=== PATIENT | male | born 1975 | race Caucasian/White ===

== ENCOUNTER 2017-11-25 05:43 | Emergency (ER) | payer BC, OTHER ==
--- NOTE | 2017-11-25 06:08 | ERPHSYRPT ---
- History of Present Illness Time Seen by Provider: 11/25/17 06:02 Source: patient Exam Limitations: no limitations Physician History: 42-year-old white male arrives with complaint of a rapid heart rate associated with diaphoresis which woke patient up one half hours prior to arrival. Patient states he was awakened by a rapid heart rate he noticed he had diaphoresis he denies any chest pain no shortness of breath no nausea no vomiting. 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 Past surgical history is negative. . Timing/Duration: today (1-1/2 hours prior to arrival) Severity: mild Modifying Factors: Improves With: nothing Associated Symptoms: diaphoresis, other (Patient with rapid heart rate which woke the patient 1 1/2 hours ago.), No nausea, No vomiting, No abdominal pain, No shortness of breath, No heartburn, No cough, No chills, No chest pain, No fever, No headaches, No loss of appetite, No malaise, No rash, No syncope, No seizure, No weakness Allergies/Adverse Reactions: No Known Drug Allergies Allergy (Verified 11/25/17 06:12) Home Medications: Aspirin [[place] Aspirin] 81 mg PO DAILY 03/23/15 [History] Carvedilol 3.125 mg [Coreg 3.125 MG] 3.125 mg PO BID 03/23/15 [History] Amlodipine Besylate [Norvasc] 5 mg PO DAILY 11/25/17 [History] Hx Tetanus, Diphtheria Vaccination/Date Given: Yes Hx Influenza Vaccination/Date Given: No Hx Pneumococcal Vaccination/Date Given: No - Review of Systems Constitutional: No Fever, No Chills Eyes: No Symptoms Ears, Nose, & Throat: No Symptoms Respiratory: No Cough, No Dyspnea Cardiac: Palpitations, Other (rapid heart rate woke patient up 1 1/2 hours ago) , No Chest Pain, No Edema, No Syncope, No Orthopnea, No PND Abdominal/Gastrointestinal: No Abdominal Pain, No Nausea, No Vomiting, No Diarrhea Genitourinary Symptoms: No No Symptoms, No Dysuria Musculoskeletal: No Back Pain, No Neck Pain Skin: No Rash Neurological: No Dizziness, No Focal Weakness, No Sensory Changes Psychological: No Symptoms Endocrine: No Symptoms ([place] knee while) All Other Systems: Reviewed and Negative - Past Medical History Pertinent Past Medical History: Yes Cardiac History: Other (patient states 30-40 percent blockage in one coronary artery) Respiratory History: Sleep Apnea Endocrine Medical History: No Pertinent History Musculoskeletal History: No Pertinent History GI Medical History: No Pertinent History History: No Pertinent History Psycho-Social History: No Pertinent History Male Reproductive Disorders: No Pertinent History - Past Surgical History Past Surgical History: No - Social History Smoking Status: Former smoker Exposure to second hand smoke: No Drug Use: none Patient Lives Alone: No - Nursing Vital Signs Nursing Vital Signs: Initial Vital Signs Pulse Rate 112 H 11/25/17 05:56 Respiratory Rate 20 11/25/17 05:56 Blood Pressure 169/111 11/25/17 05:56 O2 Sat by Pulse Oximetry 97 11/25/17 05:56 Pain Scale Pain Intensity 0 - Physical Exam General Appearance: no apparent distress, alert Eye Exam: PERRL/EOMI, eyes nml inspection Ears, Nose, Throat Exam: normal ENT inspection, TMs normal, pharynx normal, moist mucous membranes Neck Exam: normal inspection, non-tender, supple, full range of motion Respiratory Exam: normal breath sounds, lungs clear, No respiratory distress Cardiovascular Exam: regular rate/rhythm, normal peripheral pulses, capillary refill <2 sec, other, No murmur Gastrointestinal/Abdomen Exam: soft Back Exam: normal inspection, normal range of motion, No CVA tenderness, No vertebral tenderness Extremity Exam: normal inspection, normal range of motion, pelvis stable Neurologic Exam: alert, oriented x 3, cooperative, normal mood/affect, nml cerebellar function, nml station & gait, sensation nml, No motor deficits Skin Exam: normal color, warm, dry, No rash Lymphatic Exam: No adenopathy SpO2 Interpretation: normal (97%) Oxygen Delivery: Room Air - Course Nursing assessment & vital signs reviewed: Yes EKG Interpreted by Me: RATE (113 bpm), Other (EKG: Atrial fibrillation, 113 bpm , normal axis, no acute ST or T wave changes noted.) - Radiology Exams Chest X-ray Interpretation: Interpreted by me (no acute disease process noted) Ordered Tests: Active Orders 24 hr Category Date Time Status Fnps STAT Care 11/25/17 05:56 Active EKG-ER Only STAT Care 11/25/17 05:56 Active IV Insertion STAT Care 11/25/17 05:56 Active Pulse Oximetry (ED) STAT Care 11/25/17 05:56 Active CHEST 1 VIEW (PORTABLE) Stat Exams 11/25/17 05:56 Taken CBC W DIFF Stat Lab 11/25/17 06:00 Completed CMP Stat Lab 11/25/17 06:00 Completed PROTIME WITH INR Stat Lab 11/25/17 06:00 Completed PTT Stat Lab 11/25/17 06:00 Completed TROPONIN Q3H Lab 11/25/17 06:00 Completed TROPONIN Q3H Lab 11/25/17 09:00 Ordered TROPONIN Q3H Lab 11/25/17 12:00 Ordered TROPONIN Q3H Lab 11/25/17 15:00 Ordered TROPONIN Q3H Lab 11/25/17 18:00 Ordered Medication Summary Discontinued Medications Generic Name Dose Route Start Last Admin Trade Name Freq PRN Reason Stop Dose Admin Aspirin 324 mg 11/25/17 06:02 11/25/17 06:10 Baby Aspirin 81 Mg Chew PO 11/25/17 06:03 324 mg STAT ONE Administration Aspirin Confirm 11/25/17 06:11 Baby Aspirin 81 Mg Chew Administered 11/25/17 06:12 Dose 324 mg .ROUTE .STK-MED ONE Lab/Rad Data: Laboratory Result Diagrams 11/25/17 06:00 11/25/17 06:00 Laboratory Results 11/25/17 11/25/17 11/25/17 Range/Units 06:00 06:00 06:00 WBC (4.0-10.5) K/mm3 RBC (4.1-5.6) M/mm3 Hgb (12.5-18.0) gm/dl Hct (42-50) % MCV (78-100) fl MCH (26-32) pg MCHC (32-36) g/dl RDW (11.5-14.0) % Plt Count (150-450) K/mm3 MPV (6-9.5) fl Gran % (36.0-66.0) % Eos # (Auto) (0-0.5) Absolute Lymphs (auto) (1.0-4.6) Absolute Monos (auto) (0.0-1.3) Lymphocytes % (24.0-44.0) % Monocytes % (0.0-12.0) % Eosinophils % (0.00-5.0) % Basophils % (0.0-0.4) % Absolute Granulocytes (1.4-6.9) Basophils # (0-0.4) PT 10.4 (8.83-12.87) SECONDS INR 0.90 (0.8-3.0) APTT 28.3 (24.1-36.1) SECONDS Sodium 142 (137-145) mmol/L Potassium 3.6 (3.5-5.1) mmol/L Chloride 106 (98-107) mmol/L Carbon Dioxide 24 (22-30) mmol/L Anion Gap 15.6 H (5-15) MEQ/L BUN 18 (9-20) mg/dL Creatinine 0.71 (0.66-1.25) mg/dL Estimated GFR > 60.0 ML/MIN Glucose 195 H (74-106) mg/dL Calcium 9.2 (8.4-10.2) mg/dL Total Bilirubin 0.60 (0.2-1.3) mg/dL AST 20 (17-59) U/L ALT 29 (0-50) U/L Alkaline Phosphatase 103 (38-126) U/L Troponin I < 0.012 (0.000-0.034) ng/mL Serum Total Protein 7.3 (6.3-8.2) g/dL Albumin 4.3 (3.5-5.0) g/dL 11/25/17 Range/Units 06:00 WBC 7.1 (4.0-10.5) K/mm3 RBC 4.46 (4.1-5.6) M/mm3 Hgb 14.0 (12.5-18.0) gm/dl Hct 40.2 L (42-50) % MCV 90.1 (78-100) fl MCH 31.4 (26-32) pg MCHC 34.8 (32-36) g/dl RDW 14.1 H (11.5-14.0) % Plt Count 283 (150-450) K/mm3 MPV 9.0 (6-9.5) fl Gran % 63.2 (36.0-66.0) % Eos # (Auto) 0.16 (0-0.5) Absolute Lymphs (auto) 2.08 (1.0-4.6) Absolute Monos (auto) 0.33 (0.0-1.3) Lymphocytes % 29.4 (24.0-44.0) % Monocytes % 4.7 (0.0-12.0) % Eosinophils % 2.3 (0.00-5.0) % Basophils % 0.4 (0.0-0.4) % Absolute Granulocytes 4.48 (1.4-6.9) Basophils # 0.03 (0-0.4) PT (8.83-12.87) SECONDS INR (0.8-3.0) APTT (24.1-36.1) SECONDS Sodium (137-145) mmol/L Potassium (3.5-5.1) mmol/L Chloride (98-107) mmol/L Carbon Dioxide (22-30) mmol/L Anion Gap (5-15) MEQ/L BUN (9-20) mg/dL Creatinine (0.66-1.25) mg/dL Estimated GFR ML/MIN Glucose (74-106) mg/dL Calcium (8.4-10.2) mg/dL Total Bilirubin (0.2-1.3) mg/dL AST (17-59) U/L ALT (0-50) U/L Alkaline Phosphatase (38-126) U/L Troponin I (0.000-0.034) ng/mL Serum Total Protein (6.3-8.2) g/dL Albumin (3.5-5.0) g/dL - Progress Progress: improved Progress Note: 11/25/17 06:13 This is a 42-year-old white male he arrives with complaint of a fast heart which woke him up this morning approximately 1-1/2 hours ago he states he has some diaphoresis he did not have any shortness of breath no nausea no vomiting. Patient states he has had a history of one vessel blockage 30-40% in the past he is on amlodipine Coreg and one baby aspirin a day. He arrives he does not appear to be in acute distress he is quite pleasant and cooperative to examination. EKG shows atrial fibrillatio, 113 bpm normal axis no acute ST or T wave changes this is a change as compared to EKG obtained on March 23, 2015 at that time patient had a normal sinus rhythm . Will go ahead and obtain EKG CBC CMP PT PTT chest x-ray of medicine".will give patient aspirin 324 mg orally. 11/25/17 06:57 Patient is a in no acute distress patient's initial heart rate 112, blood pressure initially 169/111 this is coming down to 114/93 heart rate is running between 101 110 patient is on amlodipine 5 mg per day and carvedilol 3.125 mg by mouth twice a day. Patient has not taken either of these medications this morning. Patient was given aspirin 324milligrams orally. I discussed the patient's case with Dr. Zhao, who is financial services consultant for Dr. Garcia, the patient's director operating room, Dr. Zhao, recommended that I Give the patient Lopressor 25 mg orall and give him Lovenox 1 mg/kg subcutaneously . The patient wishes to be transferred to [facility], will arrange for a bed for this patient. - Departure Time of Disposition: 07:06 Departure Disposition: Transfer ([facility] Dr Zhao.) Clinical Impression: New onset atrial fibrillation, Atrial fibrillation with rapid ventricular response Condition: Fair Critical Care Time: No Referrals: YOBANY JOSHI MD [Primary Care Provider] -
[2017-11-25] MEDS: BABY ASPIRIN 81 MG CHEW PO ONE (06:10)
[2017-11-25] MEDS ORDERED: BABY ASPIRIN 81 MG CHEW ONE (06:11)
[2017-11-25 06:22] LABS: BASOPHIL % 0.4 % (0.0-0.4); Basophil (Absolute #) 0.03 (0-0.4); Eosinophil % 2.3 % (0.00-5.0); Eosinophil (Absolute #) 0.16 (0-0.5); Granulocyte Absolute (ANC) 4.48 (1.4-6.9); Granulocytes % 63.2 % (36.0-66.0); Hematocrit 40.2 % (42-50); Lymphocyte (Absolute #) 2.08 (1.0-4.6); Lymphocytes % 29.4 % (24.0-44.0); Mean Cell Volume 90.1 fl (78-100); Mean Corpuscular Hemoglobin 31.4 pg (26-32); Mean Corpuscular Hgb Concent. 34.8 g/dl (32-36); Monocyte (Absolute #) 0.33 (0.0-1.3); Monocytes % 4.7 % (0.0-12.0); Platelet Count 283 K/mm3 (150-450); Red Blood Count 4.46 M/mm3 (4.1-5.6); Red Cell Distribution Width 14.1 % (11.5-14.0); White Blood Count 7.1 K/mm3 (4.0-10.5)
[2017-11-25 06:30] LABS: INR 0.9 (0.8-3.0)
[2017-11-25 06:33] LABS: PTT 28.3 SECONDS (24.1-36.1)
[2017-11-25 06:35] LABS: ALBUMIN 4.3 g/dL (3.5-5.0); ALKALINE PHOSPHATASE 103 U/L (38-126); ANION GAP 15.6 MEQ/L (5-15); BLOOD UREA NITROGEN 18 mg/dL (9-20); CHLORIDE 106 mmol/L (98-107); Calcium 9.2 mg/dL (8.4-10.2); Carbon Dioxide 24 mmol/L (22-30); Creatinine 1 0.71 mg/dL (0.66-1.25); Glucose 195 mg/dL (74-106); Potassium 3.6 mmol/L (3.5-5.1); SGOT/AST 20 U/L (17-59); SGPT/ALT 29 U/L (0-50); SODIUM 142 mmol/L (137-145); Total Protein 7.3 g/dL (6.3-8.2)
[2017-11-25] MEDS ORDERED: Sodium Chloride 0.9% 1000 ML 1,000 ML ONE (07:22)
[2017-11-25] MEDS ORDERED: Lopressor 25MG Tab ONE (07:22)
[2017-11-25] MEDS: Sodium Chloride 0.9% 1000 ML 1,000 ML IV SCH (07:25)
[2017-11-25] MEDS: Lopressor 25MG Tab PO ONE (07:25)
[2017-11-25] MEDS: ENOXAPARIN SODIUM SQ ONE (07:29)
[2017-11-25] MEDS ORDERED: ENOXAPARIN SODIUM SQ ONE (07:31)
[2017-11-25] MEDS: ENOXAPARIN SODIUM SQ STA (07:32)
[2017-11-25 07:41] VITALS: BP 121/93; PULSE 118; O2SAT 96
--- NOTE | 2017-11-25 08:43 | XRAY ---
Indication: Rapid heart rate. Comparison: March 23, 2015. Portable chest again demonstrates normal heart and lungs. Bony thorax intact. No new/acute findings.
== END 2017-11-25 08:19 | disposition short-term general hospital (02) ==
LOC: ED 05:43
DX: I48.91 Unspecified atrial fibrillation (principal); G47.30 Sleep apnea, unspecified; Z87.891 Personal history of nicotine dependence; Z79.899 Other long term (current) drug therapy
CPT/HCPCS: 36000; 36415; 71045; 80053; 84484; 85025; 85610; 85730; 93005; 93041; 96360; 96372; 99285; J1650; A9270-GY

== ENCOUNTER 2018-09-22 18:22 | Emergency (ER) | payer OTHER ==
--- NOTE | 2018-09-22 19:08 | ERPHSYRPT ---
- History of Present Illness Time Seen by Provider: 09/22/18 19:00 Source: patient Exam Limitations: no limitations Patient Subjective Stated Complaint: STATES RIGHT LOWER LEG HAS BEEN SWELLING FOR ONE WEEK. IS NOW BECOMING DISCOLORED ON ANTERIOR LOWER LEG AND RIGHT FOOT. DENIES ANY INJURY. ALSO HAVING PAIN TO LEG, STATES MUSCLE FEELS TIGHT Triage Nursing Assessment: AMBULATED TO ROOM PER SELF. SKIN W/D, COLOR NORMAL. MODERATE SWELLING NOTED TO LOWER RIGHT LEG WITH DISCOLORATION NOTED TO ANTERIOR LOWER LEG AND RIGHT FOOT. GOOD PEDAL PULSE AND RIGHT LEG AND FOOT WARM TO TOUCH. SMALL ABRASION NOTED TO MID RIGHT LOWER LEG. Physician History: 43 y/o white male with h/o afib on xarelto, presents with less than a week h/o right lower leg swelling and bruising. 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 pt denies cp and denies soa. Method of Injury: unknown Occurred: last week Quality: other (improved swelling and bruising) Severity of Pain-Max: none Severity of Pain-Current: none Lower Extremities Pain: leg: right, foot: right, ankle: right Modifying Factors: Improves With: nothing Associated Symptoms: none Allergies/Adverse Reactions: No Known Drug Allergies Allergy (Verified 09/22/18 18:36) Home Medications: Aspirin [[place] Aspirin] 81 mg PO DAILY 03/23/15 [History] Carvedilol 3.125 mg [Coreg 3.125 MG] 3.125 mg PO BID 03/23/15 [History] Atorvastatin Calcium [Lipitor] 40 mg PO HS 09/22/18 [History] Lisinopril 20 mg [Zestril 20 MG] 20 mg PO DAILY 09/22/18 [History] Rivaroxaban [Xarelto] 20 mg PO DAILY 09/22/18 [History] Hx Tetanus, Diphtheria Vaccination/Date Given: Yes Hx Influenza Vaccination/Date Given: No Hx Pneumococcal Vaccination/Date Given: No - Review of Systems Constitutional: No Symptoms Eyes: No Symptoms Ears, Nose, & Throat: No Symptoms Respiratory: No Symptoms Cardiac: No Symptoms Abdominal/Gastrointestinal: No Symptoms Genitourinary Symptoms: No Symptoms Musculoskeletal: Other (right lower leg swelling and bruising) Skin: No Cellulitis, No Induration, No Rash, No Skin Lesions, No Dryness Neurological: No Symptoms Psychological: No Symptoms Endocrine: No Symptoms Hematologic/Lymphatic: No Symptoms Immunological/Allergic: No Symptoms All Other Systems: Reviewed and Negative - Past Medical History Pertinent Past Medical History: Yes Neurological History: No Pertinent History ENT History: No Pertinent History Cardiac History: Arrhythmia Respiratory History: Sleep Apnea Endocrine Medical History: No Pertinent History Musculoskeletal History: No Pertinent History GI Medical History: No Pertinent History History: No Pertinent History Psycho-Social History: No Pertinent History Male Reproductive Disorders: No Pertinent History Other Medical History: AFIB - Past Surgical History Past Surgical History: Yes Cardiac: Cardiac Catheterization Respiratory: No Pertinent History Gastrointestinal: No Pertinent History Genitourinary: No Pertinent History Musculoskeletal: No Pertinent History Male Surgical History: No Pertinent History - Social History Smoking Status: Never smoker Exposure to second hand smoke: Yes Drug Use: none Patient Lives Alone: No - Nursing Vital Signs Nursing Vital Signs: Initial Vital Signs Temperature 97.7 F 09/22/18 18:32 Pulse Rate 85 09/22/18 18:32 Respiratory Rate 18 09/22/18 18:32 Blood Pressure 120/62 09/22/18 18:32 O2 Sat by Pulse Oximetry 99 09/22/18 18:32 Pain Scale Pain Intensity 10 - Physical Exam General Appearance: no apparent distress, alert Eyes, Ears, Nose, Throat Exam: normal ENT inspection, moist mucous membranes Neck Exam: normal inspection, non-tender, supple, full range of motion Cardiovascular/Respiratory Exam: chest non-tender, no respiratory distress Gastrointestinal/Abdominal Exam: non-tender Back Exam: normal inspection, normal range of motion, No CVA tenderness, No vertebral tenderness Hips Exam: bilateral: non-tender, normal inspection, normal range of motion, no evidence of injury Legs Exam: right leg: non-tender, normal range of motion, abrasions, ecchymosis , swelling, left leg: normal inspection, no evidence of injury Knees Exam: bilateral knee: non-tender, normal inspection, normal range of motion, no evidence of injury Ankle Exam: right ankle: ecchymosis, swelling, left ankle: normal inspection, no evidence of injury, bilateral ankle: non-tender, normal range of motion Foot Exam: right foot: swelling, left foot: normal inspection, bilateral foot: non-tender, normal range of motion, no evidence of injury Neuro/Tendon Exam: normal sensation, normal motor functions, normal tendon functions Mental Status Exam: alert, oriented x 3, cooperative Skin Exam: ecchymosis SpO2 Interpretation: normal SpO2: 99 O2 Delivery: Room Air Ordered Tests: Active Orders 24 hr Category Date Time Status D-DIMER QUANTITATION Stat Lab 09/22/18 19:30 Completed PT INR [PROTIME WITH INR] Stat Lab 09/22/18 19:30 Completed Lab/Rad Data: Laboratory Results 09/22/18 Range/Units 19:30 PT 11.4 (8.83-12.87) SECONDS INR 0.98 (0.8-3.0) D-Dimer 434 (215-500) ng/mL - Progress Progress: unchanged Counseled pt/family regarding: lab results, diagnosis, need for follow-up - Departure Departure Disposition: Home Clinical Impression: Superficial bruising of lower leg, Anticoagulant effect Condition: Stable Critical Care Time: No Referrals: YOBANY JOSHI MD [Primary Care Provider] - Additional Instructions: keep right leg elevated above level of heart when not ambulating. activity as tolerated. call your prescribing doctor for further management
[2018-09-22 19:51] LABS: INR 0.98 (0.8-3.0); PROTIME 11.4 SECONDS (8.83-12.87)
[2018-09-22 20:25] VITALS: BP 119/62; PULSE 88; O2SAT 119
== END 2018-09-22 20:25 | disposition home or self-care (01) ==
LOC: ED 18:22
DX: T45.515A Adverse effect of anticoagulants, initial encounter (principal); S80.11XA Contusion of right lower leg, initial encounter; M79.89 Other specified soft tissue disorders; M79.661 Pain in right lower leg; G47.30 Sleep apnea, unspecified; I48.91 Unspecified atrial fibrillation; Z79.01 Long term (current) use of anticoagulants; Z79.82 Long term (current) use of aspirin; Z79.899 Other long term (current) drug therapy
CPT/HCPCS: 36415; 85379; 85610; 99283